=== PATIENT | male | born 1955 | race Caucasian/White ===

== ENCOUNTER 2017-03-15 09:43 | Inpatient (IN) | payer OTHER ==
[2017-03-15 10:13] VITALS: BMI 25.6
[2017-03-15] MEDS ORDERED: METHADONE HCL 10 MG TABLET (FOR DETOX USE ONLY) PO ONE ×2 (11:59→23:00)
[2017-03-15] MEDS ORDERED: MENTHOL/PHENOL 1 EACH UD MM PRN (11:59)
[2017-03-15] MEDS ORDERED: guaiFENesin/D-METHORPHAN HB 10 ML UNIT-DOSE CUPS PO PRN (11:59)
[2017-03-15] MEDS ORDERED: NICOTINE POLACRILEX 2 MG GUM BUC PRN (11:59)
[2017-03-15] MEDS ORDERED: MAG HYDROX/AL HYDROX/SIMETH 30 ML UNIT-DOSE CUP PO PRN (11:59)
[2017-03-15] MEDS ORDERED: hydrOXYzine PAMOATE 50 MG CAPSULE (FP) PO PRN (11:59)
[2017-03-15] MEDS ORDERED: MAGNESIUM HYDROX 2400MG/30ML ORAL SUSPENSION 30 ML CUP PO PRN (11:59)
[2017-03-15] MEDS ORDERED: MAGNESIUM CITRATE 300 ML BOTTLE PO PRN (11:59)
[2017-03-15] MEDS ORDERED: LOPERAMIDE HCL 2 MG CAPSULE PO PRN (11:59)
[2017-03-15] MEDS ORDERED: P-EPHED 60MG/TRIPROLIDI 2.5MG TABLET PO PRN (11:59)
[2017-03-15] MEDS ORDERED: IBUPROFEN 400 MG TABLET (FP) PO PRN (11:59)
[2017-03-15] MEDS ORDERED: ALBUTEROL SO4 2.5/IPRATROPIUM 0.5 INH SOL 3 ML VIAL.NEB. NEB PRN (12:04)
--- NOTE | 2017-03-15 12:11 | HP ---
COWS - Scale Resting Pulse: 0= [place] 80 or Below Sweatin=Flushed/Facial Moisture Restless Observation: 3= Extraneous Movement Pupil Size: 2= Moderately Dilated Bone or Joint Aches: 2= Severe Diffuse Aches Runny Nose/ Eye Tearin= Runny Nose/Eyes GI Upset > 30mins: 2= Nausea/Diarrhea Tremor Observation: 2= Slight Tremor Visible Yawning Observation: 2= >3x During Session Anxiety or Irritability: 2=Irritable/Anxious Goose Flesh Skin: 3=Piloerection COWS Score: 22 Admission ROS S - HPI Chief Complaint: Withdrawal sx. Allergies/Adverse Reactions: Allergies Allergy/AdvReac Type Severity Reaction Status Date / Time No Known Allergies Allergy Verified 03/15/17 10:43 History of Present Illness: 61 y/o man with along hx. of drug dependence is admitted for detox.Pt. has been in previous detox,reports significant time drug free. - Ebola screening Have you traveled outside of the country in the last 21 days: No Have you had contact with anyone from an Ebola affected area: No Have you been sick,other than usual withdrawal symptoms: No Patient History - Patient Medical History Hx Anemia: No Hx Asthma: No Hx Chronic Obstructive Pulmonary Disease (COPD): Yes Hx Cancer: No Hx Cardiac Disorders: No Hx Congestive Heart Failure: No Hx Hypertension: No Hx Hypercholesterolemia: No Hx Pacemaker: No HX Cerebrovascular Accident: No Hx Seizures: No Hx Dementia: No Hx Diabetes: No Hx Gastrointestinal Disorders: No Hx Liver Disease: No Hx Genitourinary Disorders: No Hx Sexually Transmitted Disorders: Yes (syphilis) Hx Renal Disease (ESRD): No Hx Thyroid Disease: No Hx Human Immunodeficiency Virus (HIV): No Hx Hepatitis C: No Hx Depression: No Hx Suicide Attempt: No Hx Bipolar Disorder: No Hx Schizophrenia: No - Patient Surgical History Past Surgical History: No Hx Neurologic Surgery: No Hx Cataract Extraction: No Hx Cardiac Surgery: No Hx Lung Surgery: No Hx Breast Surgery: No Hx Breast Biopsy: No Hx Abdominal Surgery: No Hx Appendectomy: No Hx Cholecystectomy: No Hx Genitourinary Surgery: No Hx Section: No Hx Orthopedic Surgery: No Anesthesia Reaction: No - PPD History Previous Implant?: Yes Documented Results: Negative w/o proof Implanted On Prior R Admission?: No PPD to be Administered?: Yes - Smoking Cessation Smoking history: Current every day smoker Have you smoked in the past 12 months: Yes Aproximately how many cigarettes per day: 20 Hx Chewing Tobacco Use: No Initiated information on smoking cessation: Yes 'Breaking Loose' booklet given: 03/15/17 - Substance & Tx. History Hx Alcohol Use: No Hx Substance Use: Yes Substance Use Type: Heroin, Marijuana Hx Substance Use Treatment: Yes (detox in 2001) - Substances Abused Heroin Route: Inhalation Frequency: Daily Amount used: >6 bags Age of first use: 10 Date of Last Use: 03/15/17 Marijuana Route: Smoking Frequency: Daily Amount used: $25 Age of first use: 10 Date of Last Use: 03/15/17 Family Disease History - Family Disease History Family Disease History: Heart Disease: Father ([place]), [place]: Son (not sure what type) Admission Physical Exam [facility] - Vital Signs Vital Signs: Vital Signs - 24 hr 03/15/17 10:09 Temperature 97.6 F Pulse Rate 79 Respiratory 18 Rate Blood Pressure 125/81 - Physical General Appearance: Yes: Tremorous, Irritable, Sweating, Anxious HEENTM: Yes: Nasal Congestion, Rhinorrhea Respiratory: Yes: Chest Non-Tender, Lungs Clear, Normal Breath Sounds Neck: Yes: Supple Breast: Yes: Breast Exam Deferred Cardiology: Yes: Regular Rhythm, Regular Rate, S1, S2 Abdominal: Yes: Normal Bowel Sounds, Non Tender, Flat, Soft Genitourinary: Yes: Within Normal Limits Back: Yes: Within Normal Limits Musculoskeletal: Yes: Within Normal Limits Extremities: Yes: Tremors Neurological: Yes: Fully Oriented, Alert Integumentary: Yes: Diaphoresis Lymphatic: Yes: Within Normal Limits - Diagnostic (1) COPD (chronic obstructive pulmonary disease) Current Visit: Yes Status: Acute Qualifiers: COPD type: emphysema Emphysema type: other Qualified Code(s): J43.8 - Other emphysema (2) Opioid dependence with withdrawal Current Visit: Yes Status: Acute (3) Cannabis dependence, uncomplicated Current Visit: Yes Status: Acute Cleared for Admission [facility] - Detox or Rehab [facility] Level of Care: Medically Managed Detox Regimen/Protocol: Methadone [facility] Breath Alcohol Content Breath Alcohol Content: 0 Urine Drug Screen - Results Drug Screen Negative: No Urine Drug Screen Results: THC-Marijuana, OPI-Opiates
[2017-03-15] MEDS: diazePAM 5 MG TABLET PO PRN ×2 (12:30→22:19)
[2017-03-15] MEDS: NICOTINE 21 MG/24 HOURS TOPICAL PATCH TD SCH (12:32)
[2017-03-15] MEDS: ACLIDINIUM BROMIDE 400 MCG/INH AERO.POWD IH SCH ×2 (13:02→22:19)
[2017-03-15 15:44] LABS: HIV 1 & 2 AB NEGATIVE; HIV 1 AGp24 NEGATIVE
[2017-03-15] MEDS: ALBUTEROL SO4 2.5/IPRATROPIUM 0.5 INH SOL 3 ML VIAL.NEB. NEB SCH ×2 (21:04→22:19)
[2017-03-15] MEDS: THIAMINE HCL 100 MG TABLET (FP) PO SCH (22:19)
[2017-03-15] MEDS: diphenhydrAMINE HCL 50 MG CAPSULE PO PRN (22:20)
--- NOTE | 2017-03-15 23:06 | EKG ---
Test Reason : Blood Pressure : / mmHG Vent. Rate : 068 BPM Atrial Rate : 068 BPM P-R Int : 168 ms QRS Dur : 100 ms QT Int : 396 ms P-R-T Axes : 058 078 069 degrees QTc Int : 421 ms NORMAL SINUS RHYTHM NORMAL ECG NO PREVIOUS ECGS AVAILABLE Confirmed by AISHA BASSETT MD ([id number]) on 03/15/2017 11:06:15 PM Referred By: Eleazar Peguero Confirmed By:AISHA BASSETT MD
[2017-03-16] MEDS: diazePAM 5 MG TABLET PO PRN ×3 (05:33→21:56)
[2017-03-16] MEDS ORDERED: METHADONE HCL 10 MG TABLET (FOR DETOX USE ONLY) PO ONE (10:00)
[2017-03-16] MEDS: PRENATAL VITAMINS W/ FOLIC ACID TABLET (FP) PO SCH (10:22)
[2017-03-16] MEDS: NICOTINE 21 MG/24 HOURS TOPICAL PATCH TD SCH (10:23)
[2017-03-16] MEDS: ALBUTEROL SO4 2.5/IPRATROPIUM 0.5 INH SOL 3 ML VIAL.NEB. NEB SCH ×2 (10:23→18:15)
[2017-03-16] MEDS: ACLIDINIUM BROMIDE 400 MCG/INH AERO.POWD IH SCH ×2 (10:23→21:56)
[2017-03-16] MEDS: ACETAMINOPHEN 325 MG TABLET (FP) PO PRN (10:24)
[2017-03-16 10:30] LABS: MCH 28.9 pg (25.7-33.7); MCHC 32.9 g/dl (32.0-35.9); MEAN CELL VOLUME 87.7 fl (80-96); MEAN PLT VOLUME 9.6 fl (7.5-11.1); PLATELET COUNT 280 K/MM3 (134-434); RDW 13.4 % (11.9-15.9); WHITE BLOOD COUNT 11.9 K/mm3 (4.0-10.0)
[2017-03-16 10:49] LABS: ALK PHOS 115 U/L (45-117); ANION GAP 10 (8-16); BILIRUBIN,TOTAL 0.3 mg/dL (0.2-1.0); CALCIUM 9.8 mg/dL (8.5-10.1); CO2 30 mmol/L (21-32); COCKROFT - GAULT 84.89; CREATININE 0.8 mg/dL (0.7-1.3); GLUCOSE,RANDOM 116 mg/dL (74-106); SGOT/AST 13 U/L (15-37); SGPT/ALT 21 U/L (12-78); TOT PROT 7.3 g/dl (6.4-8.2)
--- NOTE | 2017-03-16 14:37 | PN ---
BHS COWS - Scale Resting Pulse: 0= [place] 80 or Below Sweatin=Flushed/Facial Moisture Restless Observation: 1= Difficult to Sit Still Pupil Size: 0= Normal to Room Light Bone or Joint Aches: 2= Severe Diffuse Aches Runny Nose/ Eye Tearin= Runny Nose/Eyes GI Upset > 30mins: 2= Nausea/Diarrhea Tremor Observation of Outstretched Hands: 2= Slight Tremor Visible Yawning Observation: 1= 1-2x During Session Anxiety or Irritability: 2=Irritable/Anxious Goose Flesh Skin: 0=Smooth Skin COWS Score: 14 BHS Progress Note (SOAP) Subjective: Anxiety,body aches,sweating,interrupted sleep,restless. Objective: 03/16/17 14:36 Vital Signs - 8 hr 03/16/17 03/16/17 09:19 13:22 Temperature 96.1 F L 96.8 F L Pulse Rate 72 79 Respiratory 18 18 Rate Blood Pressure 138/72 158/89 Laboratory Tests 03/15/17 03/16/17 03/16/17 10:00 06:00 06:00 WBC 11.9 H RBC 4.84 Hgb 14.0 Hct 42.5 MCV 87.7 MCHC 32.9 RDW 13.4 Plt Count 280 MPV 9.6 Sodium 138 Potassium 4.2 Chloride 98 Carbon Dioxide 30 Anion Gap 10 BUN 7 Creatinine 0.8 Creat Clearance w eGFR > 60 Random Glucose 116 H Calcium 9.8 Total Bilirubin 0.3 AST 13 L ALT 21 Alkaline Phosphatase 115 Total Protein 7.3 Albumin 4.0 RPR Titer HIV 1&2 Antibody Screen Negative HIV P24 Antigen Negative 03/16/17 06:00 WBC RBC Hgb Hct MCV MCHC RDW Plt Count MPV Sodium Potassium Chloride Carbon Dioxide Anion Gap BUN Creatinine Creat Clearance w eGFR Random Glucose Calcium Total Bilirubin AST ALT Alkaline Phosphatase Total Protein Albumin RPR Titer Reactive 1:4 H HIV 1&2 Antibody Screen HIV P24 Antigen labs noted Assessment: 03/16/17 14:36 Withdrawal sx. Plan: Continue detox
[2017-03-16] MEDS ORDERED: ALBUTEROL SO4 2.5/IPRATROPIUM 0.5 INH SOL 3 ML VIAL.NEB. NEB PRN (15:21)
[2017-03-16] MEDS: amLODIPine BESYLATE 5 MG TABLET (FP) PO SCH (16:46)
[2017-03-16] MEDS: THIAMINE HCL 100 MG TABLET (FP) PO SCH (21:56)
[2017-03-16] MEDS: diphenhydrAMINE HCL 50 MG CAPSULE PO PRN (21:56)
[2017-03-17] MEDS: ACETAMINOPHEN 325 MG TABLET (FP) PO PRN ×2 (05:09→17:46)
[2017-03-17] MEDS: diazePAM 5 MG TABLET PO PRN ×4 (05:10→22:39)
[2017-03-17] MEDS ORDERED: ONDANSETRON *ODT* 4 MG TABLET SL PRN (09:02)
[2017-03-17] MEDS ORDERED: ONDANSETRON *ODT* 4 MG TABLET SL ONE (09:02)
[2017-03-17] MEDS ORDERED: METHADONE HCL 5 MG TABLET (FOR DETOX USE ONLY) PO ONE (10:00)
[2017-03-17] MEDS: PRENATAL VITAMINS W/ FOLIC ACID TABLET (FP) PO SCH (10:17)
[2017-03-17] MEDS: amLODIPine BESYLATE 5 MG TABLET (FP) PO SCH (10:18)
[2017-03-17] MEDS: NICOTINE 21 MG/24 HOURS TOPICAL PATCH TD SCH (10:18)
[2017-03-17] MEDS: ACLIDINIUM BROMIDE 400 MCG/INH AERO.POWD IH SCH ×2 (10:18→22:38)
[2017-03-17] MEDS: ALBUTEROL SO4 2.5/IPRATROPIUM 0.5 INH SOL 3 ML VIAL.NEB. NEB SCH ×4 (10:18→22:39)
--- NOTE | 2017-03-17 15:19 | PN ---
BHS COWS - Scale Resting Pulse: 1= [place] 81-100 Sweatin=Flushed/Facial Moisture Restless Observation: 1= Difficult to Sit Still Pupil Size: 0= Normal to Room Light Bone or Joint Aches: 2= Severe Diffuse Aches Runny Nose/ Eye Tearin= Runny Nose/Eyes GI Upset > 30mins: 2= Nausea/Diarrhea Tremor Observation of Outstretched Hands: 2= Slight Tremor Visible Yawning Observation: 1= 1-2x During Session Anxiety or Irritability: 2=Irritable/Anxious Goose Flesh Skin: 0=Smooth Skin COWS Score: 15 BHS Progress Note (SOAP) Subjective: Anxiety,tremors,sweating,interrupted sleep,restless,body aches Objective: 03/17/17 15:17 Vital Signs - 8 hr 03/17/17 03/17/17 09:26 13:33 Temperature 97.8 F 96.4 F L Pulse Rate 81 90 Respiratory 18 20 Rate Blood Pressure 144/94 123/79 Laboratory Tests 03/15/17 03/16/17 03/16/17 10:00 06:00 06:00 WBC 11.9 H RBC 4.84 Hgb 14.0 Hct 42.5 MCV 87.7 MCHC 32.9 RDW 13.4 Plt Count 280 MPV 9.6 Sodium 138 Potassium 4.2 Chloride 98 Carbon Dioxide 30 Anion Gap 10 BUN 7 Creatinine 0.8 Creat Clearance w eGFR > 60 Random Glucose 116 H Calcium 9.8 Total Bilirubin 0.3 AST 13 L ALT 21 Alkaline Phosphatase 115 Total Protein 7.3 Albumin 4.0 RPR Titer T.pallidum Ab (MHA) HIV 1&2 Antibody Screen Negative HIV P24 Antigen Negative 03/16/17 06:00 WBC RBC Hgb Hct MCV MCHC RDW Plt Count MPV Sodium Potassium Chloride Carbon Dioxide Anion Gap BUN Creatinine Creat Clearance w eGFR Random Glucose Calcium Total Bilirubin AST ALT Alkaline Phosphatase Total Protein Albumin RPR Titer Reactive 1:4 H T.pallidum Ab (MHA) Reactive HIV 1&2 Antibody Screen HIV P24 Antigen labs noted,hx. of syphillis Assessment: 03/17/17 15:18 Withdrawal sx. Plan: Continue detox
[2017-03-17] MEDS: diphenhydrAMINE HCL 50 MG CAPSULE PO PRN (22:38)
[2017-03-17] MEDS: THIAMINE HCL 100 MG TABLET (FP) PO SCH (22:39)
[2017-03-18] MEDS: ACETAMINOPHEN 325 MG TABLET (FP) PO PRN (05:24)
[2017-03-18] MEDS ORDERED: METHADONE HCL 5 MG TABLET (FOR DETOX USE ONLY) PO ONE (10:00)
[2017-03-18] MEDS: ALBUTEROL SO4 2.5/IPRATROPIUM 0.5 INH SOL 3 ML VIAL.NEB. NEB SCH ×4 (10:26→22:24)
[2017-03-18] MEDS: PRENATAL VITAMINS W/ FOLIC ACID TABLET (FP) PO SCH (10:26)
[2017-03-18] MEDS: NICOTINE 21 MG/24 HOURS TOPICAL PATCH TD SCH (10:27)
[2017-03-18] MEDS: ACLIDINIUM BROMIDE 400 MCG/INH AERO.POWD IH SCH ×2 (10:28→23:16)
[2017-03-18] MEDS: amLODIPine BESYLATE 5 MG TABLET (FP) PO SCH (10:28)
[2017-03-18] MEDS: diazePAM 5 MG TABLET PO PRN (10:29)
--- NOTE | 2017-03-18 12:04 | PN ---
BHS Progress Note (SOAP) Subjective: ANXIETY,IRRITABILITY,SWEATS/CHILLS. Objective: 03/18/17 12:03 Vital Signs Temperature 97.3 F L 03/18/17 10:33 Pulse Rate 123 H 03/18/17 10:33 Respiratory Rate 18 03/18/17 10:33 Blood Pressure 109/76 03/18/17 10:33 O2 Sat by Pulse Oximetry (%) Assessment: 03/18/17 12:04 WITHDRAWAL SX Plan: CONTINUE DETOX
[2017-03-18] MEDS: diphenhydrAMINE HCL 50 MG CAPSULE PO PRN (22:24)
[2017-03-18] MEDS: THIAMINE HCL 100 MG TABLET (FP) PO SCH (22:25)
[2017-03-19] MEDS: ACETAMINOPHEN 325 MG TABLET (FP) PO PRN (04:25)
[2017-03-19 06:44] VITALS: BP 122/89; PULSE 108; TEMP 98.1
[2017-03-19] MEDS ORDERED: METHADONE HCL 10 MG TABLET (FOR DETOX USE ONLY) PO ONE (10:00)
[2017-03-19] MEDS: NICOTINE 21 MG/24 HOURS TOPICAL PATCH TD SCH (10:28)
[2017-03-19] MEDS: PRENATAL VITAMINS W/ FOLIC ACID TABLET (FP) PO SCH (10:29)
[2017-03-19] MEDS: ACLIDINIUM BROMIDE 400 MCG/INH AERO.POWD IH SCH (10:29)
[2017-03-19] MEDS: amLODIPine BESYLATE 5 MG TABLET (FP) PO SCH (10:29)
--- NOTE | 2017-03-19 16:26 | DS ---
[facility] Detox Discharge Summary Admission Date: 03/15/17 Discharge Date: 03/19/17 - History Present History: Cannabis Dependence, Opioid Dependence Additional Comments: ADVISED PATIENT TO FOLLOW-UP WITH [facility] FOR GENERAL MEDICAL ASSESSMENT AND FOR ABNORMAL ADMISSION LAB VALUES. Pertinent Past History: COPD (Emphysema), Syphillis. - Physical Exam Results Vital Signs: Vital Signs Temperature 98.1 F 03/19/17 06:44 Pulse Rate 108 H 03/19/17 06:44 Respiratory Rate 18 03/19/17 06:44 Blood Pressure 122/89 03/19/17 06:44 O2 Sat by Pulse Oximetry (%) Pertinent Admission Physical Exam Findings: WITHDRAWAL SYMPTOMS. Laboratory Last Values WBC 11.9 K/mm3 (4.0-10.0) H 03/16/17 06:00 RBC 4.84 M/mm3 (4.00-5.60) 03/16/17 06:00 Hgb 14.0 GM/dL (11.7-16.9) 03/16/17 06:00 Hct 42.5 % (35.4-49) 03/16/17 06:00 MCV 87.7 fl (80-96) 03/16/17 06:00 MCHC 32.9 g/dl (32.0-35.9) 03/16/17 06:00 RDW 13.4 % (11.9-15.9) 03/16/17 06:00 Plt Count 280 K/MM3 (134-434) 03/16/17 06:00 MPV 9.6 fl (7.5-11.1) 03/16/17 06:00 Sodium 138 mmol/L (136-145) 03/16/17 06:00 Potassium 4.2 mmol/L (3.5-5.1) 03/16/17 06:00 Chloride 98 mmol/L (98-107) 03/16/17 06:00 Carbon Dioxide 30 mmol/L (21-32) 03/16/17 06:00 Anion Gap 10 (8-16) 03/16/17 06:00 BUN 7 mg/dL (7-18) 03/16/17 06:00 Creatinine 0.8 mg/dL (0.7-1.3) 03/16/17 06:00 Creat Clearance w eGFR > 60 (>60) 03/16/17 06:00 Random Glucose 116 mg/dL (74-106) H 03/16/17 06:00 Calcium 9.8 mg/dL (8.5-10.1) 03/16/17 06:00 Total Bilirubin 0.3 mg/dL (0.2-1.0) 03/16/17 06:00 AST 13 U/L (15-37) L 03/16/17 06:00 ALT 21 U/L (12-78) 03/16/17 06:00 Alkaline Phosphatase 115 U/L (45-117) 03/16/17 06:00 Total Protein 7.3 g/dl (6.4-8.2) 03/16/17 06:00 Albumin 4.0 g/dl (3.4-5.0) 03/16/17 06:00 RPR Titer Reactive 1:4 (NONREACTIVE) H 03/16/17 06:00 T.pallidum Ab (MHA) Reactive (NONREACTIVE) 03/16/17 06:00 HIV 1&2 Antibody Screen Negative 03/15/17 10:00 HIV P24 Antigen Negative 03/15/17 10:00 LABS NOTED. - Treatment Hospital Course: Detoxed Safely - Medication Discharge Medications: Ambulatory Orders Ipratropium/Albuterol Sulfate [Combivent Respimat Inhal [place]] 1 inh IH DAILY - Diagnosis (1) COPD (chronic obstructive pulmonary disease) Status: Chronic Qualifiers: COPD type: emphysema Emphysema type: other Qualified Code(s): J43.8 - Other emphysema (2) Cannabis dependence, uncomplicated Status: Acute (3) Opioid dependence with withdrawal Status: Acute - AMA Did Patient Leave Against Medical Advice: Yes (PATIENT DID NOT WANT TO STAY ON UNIT TO COMPLETE DETOX REGIMEN.)
[2017-03-20] MEDS ORDERED: METHADONE HCL 5 MG TABLET (FOR DETOX USE ONLY) PO ONE (06:00)
== END 2017-03-19 11:06 | disposition left against medical advice (07) | DRG 743 ==
LOC: YASAS 09:43 → Y3N 11:35
PROVIDERS: ADMIT Internal Medicine; ATTEND Internal Medicine
PROC: HZ2ZZZZ Detoxification Services for Substance Abuse Treatment (ICD-10-PCS; principal; 2017-03-19)
DX: F11.23 Opioid dependence with withdrawal (principal); J43.8 Other emphysema; F12.20 Cannabis dependence, uncomplicated; F17.210 Nicotine dependence, cigarettes, uncomplicated; Z87.438 Personal history of other diseases of male genital organs
CPT/HCPCS: 36415; 80053; 81003; 85027; 86593; 86780; 87389; 93005; 93010; 94640